=== PATIENT | female | born 1985 | race Caucasian/White ===

== ENCOUNTER 2024-10-24 23:51 | Emergency (ER) | payer SELFPAY ==
[2024-10-24 23:52] VITALS: BMI 30.2
[2024-10-24 23:58] VITALS: BP 114/76; PULSE 80; RESP 18; TEMP 36.7; O2SAT 97
--- NOTE | 2024-10-25 01:42 | PD.EDEYE ---
ED Eye Problem RME/HPI General Chief complaint: Allergic Reaction Stated complaint: ALLERGIES, ITCHY EYES, SINUS PRESSURE Time Seen by Provider: 10/24/24 23:59 Arrival date/time: 10/24/24 23:51 RME / HPI RME / HPI Narrative: 39-year-old female presents to the ED with a complaint of bilateral eye irritation with watery eyes, photophobia, and blurry vision. Her symptoms just began today. She denies any injuries to the eyes, no excessive sun exposure or tanning bed exposure. She denies any chemical exposures. 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 Related Data Previous Rx's ?Medication ?Instructions ?Recorded gentamicin 0.3 % eye drops 2 drp ophthalmic (eye) Q4H 5 days 10/25/24 #5 mL Allergies Allergy/AdvReac Type Severity Reaction Status Date / Time cat dander Allergy Verified 10/24/24 23:55 Review of Systems Review of Systems Systems Reviewed: All systems reviewed, normal except as documented Past Medical History Social History SMOKING STATUS: Never smoker ED Exam Narrative Physical exam: A&O, afebrile and non-toxic appearing , no acute distress. Lung are clear, RRR, Abdomen is non-distended. Moves all extremities well. Course Orders Category Date Time Status Visual Acuity NOW Care 10/25/24 01:45 Active Singer Lamp to Bedside X1 Care 10/25/24 01:45 Active Fluorescein Sodium [Bio-Hazel] Med 10/25/24 01:45 Discontinued 2 mg BOTH EYES X1 ONE Proparacaine Op Natalia 0.5% [Alcaine Op Natalia 0.5%] Med 10/25/24 01:45 Discontinued See Dose Instructions BOTH EYES X1 ONE Vital Signs Vital signs: Vital Signs Temperature 98.1 F 10/24/24 23:58 Pulse Rate 80 10/24/24 23:58 Respiratory Rate 18 10/24/24 23:58 Blood Pressure 114/76 10/24/24 23:58 Pulse Oximetry (%) 97 10/24/24 23:58 Oxygen Delivery Method Room Air 10/24/24 23:58 PROCEDURES: Procedure Comment Visual acuity obtained. She has 20/20 right eye, 20/20 left eye, 20/20 bilateral eyes. Proparacaine 1 drop bilateral eyes. Fluorescein dye administered to bilateral eyes. Singer lamp exam reveals no dye uptake to the left cornea. Positive mild uptake to the right cornea in the 4 to 5 o'clock position. Bilateral sclera appear to have mild dye uptake bilaterally consistent with a photokeratitis however patient denies being in the sun for any length of time recently. Eye Medications / Prescriptions Medication administrations:: Medication Administration History Discontinued Medications Fluorescein Sodium (Fluorescein Sod 1 Mg Strp) 2 mg BOTH EYES X1 ONE Stop: 10/25/24 01:46 Last Admin: 10/25/24 02:00 Dose: 2 mg Documented By: BD Comments: GIVEN TO PROVIDER MARTELL Proparacaine HCl (Proparacaine Op Natalia 0.5% 15 Ml Btl) 0 drop BOTH EYES X1 ONE Stop: 10/25/24 01:46 Last Admin: 10/25/24 02:00 Dose: 225 drop Documented By: BD Comments: GIVEN TO PROVIDER MARTELL Discharge Plan Plan Patient Disposition: HOME (Self Care) Discharge Disposition comment: Stable and improved Prescriptions/Referrals Prescriptions/Med Rec: New gentamicin 0.3 % drops 2 drp ophthalmic (eye) Q4H 5 Days Qty: 5 0RF Rx Instructions: Bilateral eyes Referrals: No Primary/Family,Physician [Primary Care Provider] - In 1 week Problem List Clinical Impression: Corneal abrasion, right, Allergic conjunctivitis Patient/Caregiver Discharge Instructions Education Materials: ED Conjunctivitis, Allergic, ED Corneal Abrasion Additional Instructions: Use the eyedrops as prescribed. Follow-up with your primary care physician in 24 to 48 hours. Return to the ED for any new or worsening symptoms. Print Language: Nepali Stand Alone Forms: Franci Award Info., Patient Portal Info Letter SALINAS/MALGORZATA Supervising Physician SALINAS/MALGORZATA Supervising Physician: Dr. Arroyo
[2024-10-25] MEDS: PROPARACAINE OP SOL 0.5% 15 ML BTL BOTH EYES (02:00)
[2024-10-25] MEDS: FLUORESCEIN SOD 1 MG STRP 2 MG BOTH EYES (02:00)
== END 2024-10-25 03:12 | disposition home or self-care (01) ==
PROVIDERS: Emergency Provider Emergency Medicine
DX: S05.01XA Injury of conjunctiva and corneal abrasion without foreign body, right eye, initial encounter (principal); H10.11 Acute atopic conjunctivitis, right eye; X58.XXXA Exposure to other specified factors, initial encounter
CPT/HCPCS: 99283